=== PATIENT | female | born 1975 | race Caucasian/White ===

== ENCOUNTER → 2016-11-05 | Outpatient (CLI) | payer BC ==
[2016-11-05 17:36] LABS: HEMATOCRIT 41.1 % (37.0-47.0); HEMOGLOBIN 13.7 g/dL (12.0-16.0); MEAN CORPUSCULAR HEMOGLOBIN 29.2 PG (27-31); MEAN CORPUSCULAR HGB CONC 33.3 g/dL (33-37); MEAN CORPUSCULAR VOLUME 87.6 FL (81-99); MEAN PLATELET VOLUME 9.2 FL (7.4-12.2); RED BLOOD COUNT 4.69 10^6/uL (4.20-5.40)
[2016-11-05 17:45] LABS: BLOOD UREA NITROGEN 14 mg/dL (7-22); CALCIUM 9.2 mg/dL (8.7-10.7); CHOL/HDL RATIO 2.83 RATIO (0-4.0); EST GLOMERULAR FILTRATION > 60 (>60 ml/min/1.73m(2)); HDL CHOLESTEROL 62 mg/dL (40-150); SERUM ALBUMIN 3.9 g/dL (3.5-4.8); SERUM CHOLESTEROL 176 mg/dL (120-200)
[2016-11-05 18:00] LABS: FREE T4 (FREE THYROXINE) 1.03 ng/dL (0.93-1.71)
== END ==
LOC: LAB 08:53
PROVIDERS: ATTEND Nurse Practitioner Women's Health
DX: E03.9 Hypothyroidism, unspecified (principal); Z00.00 Encounter for general adult medical examination without abnormal findings
CPT/HCPCS: 80053; 80061; 84439; 84443; 85027